=== PATIENT | male | born 1995 | race Caucasian/White ===

== ENCOUNTER 2019-04-19 20:58 | Emergency (ER) | payer SELFPAY ==
[~2019-04-19] VITALS: Ht 177.8 cm; Wt 97.5 kg
[2019-04-19 21:09] VITALS: BP 142/88
[2019-04-19] MEDS ORDERED: IBUPROFEN 400 MG TABLET PO ONE (21:30)
[2019-04-19] MEDS ORDERED: ACETAMINOPHEN ES 500 MG TABLET PO ONE (21:30)
--- NOTE | 2019-04-19 21:30 | NUR ---
CREDIT ADVISOR AT BEDSIDE FOR XRAY.
[2019-04-19] MEDS ORDERED: ACETAMINOPHEN ES 500 MG TABLET ONE (21:38)
[2019-04-19] MEDS ORDERED: IBUPROFEN 600 MG TABLET PO ONE (21:38)
--- NOTE | 2019-04-19 22:01 | NUR ---
SPLINTING DONE BY TELEPHONE CLAIMS REPRESENTATIVE.
--- NOTE | 2019-04-19 22:05 | NUR ---
Patient discharged to home in stable condition. Written and verbal after care instructions given. Patient verbalizes understanding of instruction.
== END 2019-04-19 22:03 | disposition home or self-care (01) ==
LOC: ER 21:01
DX: S62.396A Other fracture of fifth metacarpal bone, right hand, initial encounter for closed fracture (principal); W01.0XXA Fall on same level from slipping, tripping and stumbling without subsequent striking against object, initial encounter; Y93.67 Activity, basketball; Y92.310 Basketball court as the place of occurrence of the external cause; Y99.8 Other external cause status
CPT/HCPCS: 73130-TC

== ENCOUNTER 2019-04-21 02:42 | Emergency (ER) | payer SELFPAY ==
[~2019-04-21] VITALS: Ht 175.3 cm; Wt 97.5 kg
[2019-04-21 04:20] VITALS: BP 163/107
[2019-04-21] MEDS ORDERED: oxyCODONE/APAP (5/325 MG) 1 UDTAB TABLET PO STA (05:09)
[2019-04-21] MEDS ORDERED: oxyCODONE/APAP (5/325 MG) 1 UDTAB TABLET ONE (05:28)
== END 2019-04-21 05:45 | disposition home or self-care (01) ==
LOC: ER 02:47
DX: S60.221A Contusion of right hand, initial encounter (principal); S62.306D Unspecified fracture of fifth metacarpal bone, right hand, subsequent encounter for fracture with routine healing; X58.XXXA Exposure to other specified factors, initial encounter; Y93.67 Activity, basketball; Y92.310 Basketball court as the place of occurrence of the external cause; Y99.8 Other external cause status